=== PATIENT | female | born 1955 | race African-American/Black ===

== ENCOUNTER → 2018-09-06 | Day surgery (SDC) | payer MEDICARE, OTHER ==
[2018-09-02 12:17] LABS: ANION GAP 12.1 mmol/L (8-16); BLOOD UREA NITROGEN 11 mg/dL (7-26); BUN/CREATININE RATIO 13 (6-25); CALCIUM 9.7 mg/dL (8.4-10.2); CARBON DIOXIDE 26 mmol/L (22-29); CHLORIDE 104 mmol/L (98-107); CREATININE, SERUM 0.83 mg/dL (0.57-1.11); EST GLOMERULAR FILTRATION RATE > 60 ML/MIN (60-); GLUCOSE 142 mg/dL (74-118); POTASSIUM 4.1 mmol/L (3.5-5.1); SODIUM 138 mmol/L (136-145)
[~2018-09-06] MED LIST: BUPIVACAINE HCL 0.5% INJ 30 ML VIAL INJ ONE; FENTANYL CITRATE/PF 100MCG/2 ML INJ ONE; GABAPENTIN400 MG PO; HYDROCODONE/APAP 10MG-325MG TAB ONE; IBUPROFEN200 MG PO; IOPAMIDOL 200 MG/ML 20 ML VIAL IT ONE; LIDOCAINE HCL 1% LOCAL INJ 20 ML VIAL ONE; LISINOPRIL-HCT1 EAC1 PO; MIDAZOLAM HCL 2 MG/2 ML VIAL ONE; NORCO 10-325 T1 EACH PO; PROPOFOL IV EMULSION 10 MG/ML 20 ML VIAL ONE; SOMA350 MG PO; TRIAMCINOLONE ACET 40 MG/ML VIAL ONE; XANAX1 MG PO
--- OUTSIDE RECORDS SUMMARY | 2018-09-06 05:14 | XMS REPORT | Summary of Care ---
Author Organization Unknown Address Unknown Phone Unavailable Encounter DORI Levy(TATI) [id number] Date(s): 07/05/13 - 07/05/13 [facility] [address] [place] [address] Discharge Diagnosis: Right knee arthritis - severe Discharge Disposition: Home Physician Attending: Deisi Flores Reason for Visit LOWER BACK PAIN/KNEE PAIN Vital Signs Most recent to 1 2 oldest [Reference Range]: Height 167.64 cm (07/05/13 2:50 PM) Temperature Oral 97.8 DegF 97.7 DegF [96.4-99.1 DegF] (07/05/13 5:39 PM) (07/05/13 2:50 PM) Systolic Blood 151 mmHg 159 mmHg Pressure [90-140 *HI* *HI* mmHg] (07/05/13 5:39 PM) (07/05/13 2:50 PM) Diastolic Blood 87 mmHg 100 mmHg Pressure [60-90 (07/05/13 5:39 PM) *HI* mmHg] (07/05/13 2:50 PM) Respiratory Rate 18 BRMIN 18 BRMIN [14-20 BRMIN] (07/05/13 5:39 PM) (07/05/13 2:50 PM) Peripheral Pulse 62 bpm 71 bpm Rate [60-100 bpm] (07/05/13 5:39 PM) (07/05/13 2:50 PM) Weight 81.364 kg (07/05/13 2:50 PM) Body Mass Index 28.95 m2 (07/05/13 2:50 PM) Problem List Condition Effective Dates Status Health Status Informant None(Confirmed) Resolved Allergies, Adverse Reactions, Alerts Substance Reaction Severity Status NKDA Active Medications hydrochlorothiazide 25 mg oral tablet 25 mg=1 tab, PO, Daily, # 30 tab, 0 Refill(s) Start Date: 07/05/13 Status: Ordered Browder 5/325 oral tablet 2 tab, Route: PO, Drug Form: TAB, Dosing Weight 81.364, kg, ONCE, STAT, Start da te: 07/05/13 15:49:00, Stop date: 07/05/13 15:49:00 Notes: (Same as: Browder 325/5) Do not exceed 4gm/day of acetaminophen. Start Date: 07/05/13 Stop Date: 07/05/13 Status: Completed Browder 5/325 oral tablet 2 tab, PO, Q4H, for pain, # 30 tab, 0 Refill(s) Start Date: 07/05/13 Status: Ordered Medications Administered During Your Visit No data available for this section Immunizations No data available for this section Procedures Procedure Type Body Site Date of Procedure Related Diagnosis Replacement of left knee joint Social History Social History Type Response Smoking Status Never smoker, Previous treatment: None, Ready to change: No, Concerns about tobacco use in household: No, Exposure to Tobacco Smoke None, Cigarette Smoking Last 365 Days No, Reg Smoking Cessation Counseling No
--- OUTSIDE RECORDS SUMMARY | 2018-09-06 05:14 | XMS REPORT | Continuity of Care Document ---
Author Author Chelsy sorto Organization Interface Address Unknown Phone Unavailable Problems Problem Status Onset Date Classification Date Reported Comments Source KNEE OSTEOARTHRITIS Active 03/31/[address] [facility] Discharge Diagnosis: Right knee arthritis - severe 07/05/2013 07/07/2013 [facility] LOWER BACK PAIN/KNEE PAIN Active 07/05/2013 [facility] Hypertension Active Problem 04/12/2016 [facility] Arthritis Active Problem 04/12/2016 [facility] None Resolved Problem 04/12/2016 [facility] Cough Active Problem 04/12/2016 [facility] Medications Medication Details Route Status Patient Instructions Ordering Provider Order Date Source Acetaminophen 325 MG / Hydrocodone Bitartrate 10 MG Oral Tablet [[place] 10/325] 1-2 tab, PO, Q4-6H, PRN Pain, X 5 day, # 60 tab, 0 Refill(s), given to patient Active 04/09/2016 [facility] Acetaminophen 1,000 mg, Route: IVPB, ONCE, Dosing Weight 77.727, kg, Start date: 04/09/16 14:08:00 REPLANTER, Stop date: 04/09/16 14:08:00 REPLANTER Inactive 04/09/2016 [facility] Ondansetron 4 mg, 2 mL, Route: IVP, Drug form: INJ, ONCE, Dosing Weight 77.727, kg, PRN Nausea & Vomiting, Start date: 04/09/16 13:52:00 CSTNotes: (Same as: Julianne) MEDICATION WASTE Product Size: 4 mg Product Wasted: ___ mg Inactive 04/09/2016 [facility] Hydromorphone 0.5 mg, 0.25 mL, Route: IVP, Drug form: INJ, Q5Min, Dosing Weight 77.727, kg, PRN Pain Score 7-10, Start date: 04/09/16 13:52:00 REPLANTER, Duration: 4 doses or times, Stop date: 04/09/16 18:00:00 CSTNotes: Same as Dilaudid Inactive 04/09/2016 [facility] Naloxone 0.4 mg, 1 mL, Route: IVP, Drug form: INJ, Q2MIN, Dosing Weight 77.727, kg, PRN Narcotic Reversal, Start date: 04/09/16 13:52:00 REPLANTER, Duration: 8 doses or times, Stop date: Limited # of timesNotes: Same as Narcan Inactive 04/09/2016 [facility] Flumazenil 0.2 mg, 2 mL, Route: IVP, Drug form: INJ, PRN, Dosing Weight 77.727, kg, PRN Benzodiazepine Reversal, Initial dose, Start date: 04/09/16 13:52:00 REPLANTER, Stop date: 04/09/16 18:00:00 CSTNotes: (Same as: Romazicon) Inactive 04/09/2016 [facility] Acetaminophen 1,000 mg, 2 tab, Route: PO, Drug form: TAB, ONCE, Dosing Weight 77.727, kg, PRN Pain Score 1-3, Start date: 04/09/16 13:52:00 REPLANTER, Duration: 1 doses or times, Stop date: Limited # of timesNotes: Max acetaminophen 4000 mg/day (4 gm/day). (Same as: Tylenol Extra Strength) Inactive 04/09/2016 [facility] Ketorolac 30 mg, 1 mL, Route: IVP, Drug form: INJ, ONCE, Dosing Weight 77.727, kg, Start date: 04/09/16 13:52:00 REPLANTER, Duration: 1 doses or times, Stop date: 04/09/16 13:52:00 CSTNotes: (Same as:Toradol) IV bolus must be given >15 seconds. Give IM administration slowly and deeply into the muscle. Not for use > 4 days MEDICATION WASTE Product Size: 30 mg Product Wasted: ___ mg Inactive 04/09/2016 [facility] Labetalol 10 mg, 2 mL, Route: IVP, Drug form: INJ, Q5Min, Dosing Weight 77.727, kg, PRN Elevated BP, Start date: 04/09/16 13:52:00 REPLANTER, Duration: 5 doses or times, Stop date: 04/09/16 18:00:00 REPLANTER Inactive 04/09/2016 [facility] Hydralazine 10 mg, 0.5 mL, Route: IVP, Drug form: INJ, Q20Min, Dosing Weight 77.727, kg, PRN Elevated BP, Start date: 04/09/16 13:52:00 REPLANTER, Duration: 2 doses or times, Stop date: 04/09/16 18:00:00 CSTNotes: (Same as: Apresoline) Push over 5 minutes Inactive 04/09/2016 [facility] Tramadol 50 mg, 1 tab, Route: PO, Drug form: TAB, Q6H, Dosing Weight 77.727, kg, PRN Pain Score 1-3, Start date: 04/09/16 13:37:00 REPLANTER, Duration: 30 day, Stop date: 05/09/16 13:36:00 CSTNotes: Not to exceed 4 00mg/day. (Same As: Ultram) No Longer Active 04/09/2016 [facility] Acetaminophen 325 MG / Hydrocodone Bitartrate 10 MG Oral Tablet 1 tab, Route: PO, Drug Form: TAB, Dosing Weight 77.727, kg, Q4H, PRN Pain Score 4-6, Start date: 04/09/16 13:37:00 REPLANTER, Duration: 30 day, Stop date: 05/09/16 13:36:00 CSTNotes: Do not exceed 4gm/day of acetaminophen. (Same as: [place] 325/10) No Longer Active 04/09/2016 [facility] Morphine 2 mg, 0.2 mL, Route: IVP, Drug form: INJ, Q3H, Dosing Weight 77.727, kg, PRN Pain Score 1-3, Start date: 04/09/16 13:37:00 REPLANTER, Duration: 30 day, Stop date: 05/09/16 13:36:00 CSTNotes: (Same as:MORPhine Sulfate) No Longer Active 04/09/2016 [facility] Hydromorphone 0.3 mg, 0.15 mL, Route: IVP, Drug form: INJ, Q3H, Dosing Weight 77.727, kg, PRN Pain Score 4-6, Start date: 04/09/16 13:37:00 REPLANTER, Duration: 30 day, Stop date: 05/09/16 13:36:00 CSTNotes: Same as Dilaudid No Longer Active 04/09/2016 [facility] Lactated Ringers 1,000 mL 1,000 mL, Rate: 40 ml/hr, Infuse over: 25 hr, Route: IV, Dosing Weight 77.727 kg, Total Volume: 1,000, Start date: 04/09/16 12:17:00 REPLANTER, Duration: 30 day, Stop date: 05/09/16 12:16:00 REPLANTER No Longer Active 04/09/2016 [facility] Ancef 2 gm, 100 mL, Route: IVPB, Drug form: INJ, PRE OP, Start date: 04/09/16 12:00:00 REPLANTER, Duration: 30 day, Stop date: 05/09/16 11:59:00 CSTNotes: Same as Ancef Inactive 04/09/2016 [facility] Hydrochlorothiazide 12.5 MG / Lisinopril 20 MG Oral Tablet 1 tab, PO, Daily, # 30 tab, 0 Refill(s) Active 04/06/2016 [facility] ibuprofen 800 mg oral tablet 800 mg=1 tab, PO, Q8H, PRN Pain, Take with food, # 30 tab, 0 Refill(s) Active 04/06/2016 [facility] Hydrochlorothiazide 25 MG Oral Tablet 25 mg=1 tab, PO, Daily, # 30 tab, 0 Refill(s) Active 07/05/2013 [facility] Acetaminophen 325 MG / Hydrocodone Bitartrate 5 MG Oral Tablet [[place] 5/325] 2 tab, PO, Q4H, for pain, # 30 tab, 0 Refill(s) Active 07/05/2013 [facility] Acetaminophen 325 MG / Hydrocodone Bitartrate 5 MG Oral Tablet [[place] 5/325] 2 tab, Route: PO, Drug Form: TAB, Dosing Weight 81.364, kg, ONCE, STAT, Start date: 07/05/13 15:49:00, Stop date: 07/05/13 15:49:00Notes: (Same as: [place] 325/5) Do not exceed 4gm/day of acetaminophen. Inactive 07/05/2013 [facility] Allergies, Adverse Reactions, Alerts Substance Category Reaction Severity Reaction type Status Date Reported Comments Source Immunizations Immunization Date Given Site Status Last Updated Comments Source Results Order Name Results Value Reference Range Date Interpretation Comments Source URINE AND STOOL UA WBC 3-5 /HPF None Seen /HPF 04/07/2016 [facility] URINE AND STOOL UA Bacteria Occasional /HPF None Seen /HPF 04/07/2016 [facility] URINE AND STOOL UA RBC 0-2 /HPF 0 - 2 04/07/2016 [facility] URINE AND STOOL UA Glucose Negative (04/07/16 10:42 AM) Negative 04/07/2016 [facility] URINE AND STOOL UA Ketones Negative *NA* (04/07/16 10:42 AM) Negative 04/07/2016 [facility] URINE AND STOOL UA Protein Negative (04/07/16 10:42 AM) Negative 04/07/2016 [facility] URINE AND STOOL UA Bili Negative *NA* (04/07/16 10:42 AM) Negative 04/07/2016 [facility] URINE AND STOOL UA Urobilinogen 0.2 EU/dL 0.1 - 1.0 04/07/2016 [facility] URINE AND STOOL UA Blood Negative (04/07/16 10:42 AM) Negative 04/07/2016 [facility] URINE AND STOOL UA Sq Epi Few /LPF Few /LPF 04/07/2016 [facility] URINE AND STOOL UA Leuk Est Small *ABN* (04/07/16 10:42 AM) Negative 04/07/2016 [facility] URINE AND STOOL UA Nitrite Negative (04/07/16 10:42 AM) Negative 04/07/2016 [facility] URINE AND STOOL UA Spec Grav 1.025 <=1.030 04/07/2016 [facility] URINE AND STOOL UA Color Yellow *NA* (04/07/16 10:42 AM) Yellow 04/07/2016 [facility] URINE AND STOOL UA Turbidity Clear (04/07/16 10:42 AM) Clear 04/07/2016 [facility] URINE AND STOOL UA pH 6.0 5.0 - 8.0 04/07/2016 [facility] CHEM PANEL eGFR 74 mL/min/1.73m2 04/07/2016 Result Comment: The eGFR is calculated using the CKD-EPI formula. In most young, healthy individuals the eGFR will be >90 mL/min/1.73m2. The eGFR declines with age. An eGFR of 60-89 may be normal in some populations, particularly the elderly, for whom the CKD-EPI formula has not been extensively validated. Use of the eGFR is not recommended in the following populations: Individuals with unstable creatinine concentrations, including patients and those with serious co-morbid conditions. Patients with extremes in muscle mass or diet. The data above are obtained from the National Kidney Disease Education Program (NKDEP) which additionally recommends that when the eGFR is used in patients with extremes of body mass index for purposes of drug dosing, the eGFR should be multiplied by the estimated BMI. [facility] CHEM PANEL ALANINE AMINOTRANSFERASE 34 unit/L 0 - 65 04/07/2016 [facility] CHEM PANEL ASPARTATE TRANSAMINASE 22 unit/L 0 - 37 04/07/2016 [facility] CHEM PANEL Total Protein 7.5 g/dL 6.4 - 8.4 04/07/2016 [facility] CHEM PANEL CO2 30 meq/L 24 - 32 04/07/2016 [facility] CHEM PANEL Albumin Lvl 3.3 g/dL 3.5 - 5.0 04/07/2016 [facility] CHEM PANEL Potassium Lvl 4.4 meq/L 3.5 - 5.1 04/07/2016 [facility] CHEM PANEL Calcium Lvl 9.9 mg/dL 8.5 - 10.5 04/07/2016 [facility] CHEM PANEL Chloride Lvl 104 meq/L 95 - 109 04/07/2016 [facility] CHEM PANEL Bili Total 0.3 mg/dL 0.2 - 1.3 04/07/2016 [facility] CHEM PANEL Alk Phos 69 unit/L 39 - 136 04/07/2016 [facility] CHEM PANEL BUN 9 mg/dL 7 - 22 04/07/2016 [facility] CHEM PANEL Sodium Lvl 139 meq/L 135 - 145 04/07/2016 [facility] CHEM PANEL Glucose Lvl 82 mg/dL 70 - 99 04/07/2016 [facility] CHEM PANEL Creatinine Lvl 0.97 mg/dL 0.50 - 1.40 04/07/2016 [facility] CHEM PANEL A/G Ratio 0.8 0.7 - 1.6 04/07/2016 [facility] CHEM PANEL Globulin 4.2 g/dL 2.7 - 4.2 04/07/2016 [facility] CHEM PANEL B/C Ratio 9 6 - 25 04/07/2016 [facility] CHEM PANEL AGAP 9.4 meq/L 10.0 - 20.0 04/07/2016 [facility] HEMATOLOGY Basophils 0.8 % 0.0 - 1.0 04/07/2016 [facility] HEMATOLOGY Eosinophils 3.6 % 0.0 - 4.0 04/07/2016 [facility] HEMATOLOGY Monocytes 11.3 % 2.0 - 12.0 04/07/2016 [facility] HEMATOLOGY Segs 39.1 % 45.0 - 75.0 04/07/2016 [facility] HEMATOLOGY Lymphocytes 45.2 % 20.0 - 40.0 04/07/2016 [facility] HEMATOLOGY Eosinophils # 0.2 K/CMM 0.0 - 0.5 04/07/2016 [facility] HEMATOLOGY Monocytes # 0.7 K/CMM 0.0 - 0.8 04/07/2016 [facility] HEMATOLOGY Segs-Bands # 2.3 K/CMM 1.5 - 8.1 04/07/2016 [facility] HEMATOLOGY Lymphocytes # 2.7 K/CMM 1.0 - 5.5 04/07/2016 [facility] HEMATOLOGY Hgb 13.0 g/dL 12.0 - 16.0 04/07/2016 [facility] HEMATOLOGY Hct 39.8 % 36.0 - 48.0 04/07/2016 [facility] HEMATOLOGY MCH 32.6 pg 27.0 - 31.0 04/07/2016 [facility] HEMATOLOGY MCHC 32.6 g/dL 32.0 - 36.0 04/07/2016 [facility] HEMATOLOGY MCV 100.0 fL 80.0 - 98.0 04/07/2016 [facility] HEMATOLOGY RDW 13.6 % 11.5 - 14.5 04/07/2016 [facility] HEMATOLOGY WBC 6.0 K/CMM 3.7 - 10.4 04/07/2016 [facility] HEMATOLOGY RBC 3.98 M/CMM 4.20 - 5.40 04/07/2016 [facility] HEMATOLOGY Platelet 261 K/CMM 133 - 450 04/07/2016 [facility] HEMATOLOGY MPV 8.3 fL 7.4 - 10.4 04/07/2016 [facility] Vital Signs Vital Sign Value Date Comments Source Systolic (mm Hg) 132 04/09/2016 [facility] Diastolic (mm Hg) 75 04/09/2016 [facility] Respitory Rate 14 04/09/2016 [facility] Heart Rate 67 04/09/2016 [facility] Systolic (mm Hg) 144 04/09/2016 [facility] Diastolic (mm Hg) 79 04/09/2016 [facility] Respitory Rate 16 04/09/2016 [facility] Heart Rate 65 04/09/2016 [facility] Respitory Rate 16 04/09/2016 [facility] Systolic (mm Hg) 138 04/09/2016 [facility] Diastolic (mm Hg) 79 04/09/2016 [facility] Heart Rate 78 04/09/2016 [facility] Temperature Oral (F) 98.4 F 04/09/2016 [facility] Weight 77.727 04/09/2016 [facility] BMI Calculated 27.66 04/09/2016 [facility] Temperature Oral (F) 97.4 F 04/07/2016 [facility] Height 167.64 cm 04/06/2016 [facility] Heart Rate 62 07/05/2013 [facility] Resp[facility] Rate 18 07/05/2013 [facility] Systolic (mm Hg) 151 07/05/2013 [facility] Diastolic (mm Hg) 87 07/05/2013 [facility] Temperature Oral (F) 97.8 F 07/05/2013 [facility] Height 167.64 cm 07/05/2013 [facility] BMI Calculated 28.95 07/05/2013 [facility] Weight 81.364 07/05/2013 [facility] Respitory Rate 18 07/05/2013 [facility] Temperature Oral (F) 97.7 F 07/05/2013 [facility] Systolic (mm Hg) 159 07/05/2013 [facility] Heart Rate 71 07/05/2013 [facility] Diastolic (mm Hg) 100 07/05/2013 [facility] Encounters Location Location Details Encounter Type Encounter Number Reason For Visit Attending Provider ADM Date DC Date Status Source [facility] [id number] Deisi Flores 07/05/2013 07/05/2013 [facility] [id number] Jordan Garay 04/09/2016 04/10/2016 [facility] Procedures Procedure Code Date Perfomer Comments Source Replacement of left knee joint [id number] 03/29/2005 [facility] Tubal ligation [id number] 03/29/1984 [facility] Replacement of left knee joint [id number] [facility]
--- OUTSIDE RECORDS SUMMARY | 2018-09-06 05:14 | XMS REPORT ---
Author Organization Unknown Address [address] [place] [address] Phone [phone] Care Team Providers Care Police Booking Officer Name Role Phone VELMA "DON" JASIEL MAYEN 3 [phone] FRANCISCO MIRANDA 212 [phone] GABBIE MAYAJOSHUA 107 [phone] Allergies Code Code System Name Reaction Severity Status Onset NKDA Medications Name Status Start Date Stop Date acetaminophen 300 mg-codeine 30 mg tablet Take 1 tablet every 8 hours by oral route as needed. Completed 09/02/2016 acetaminophen 300 mg-codeine 60 mg tablet TAKE 1 TABLET BY MOUTH EVERY 8 HOURS Active Not available alprazolam 2 mg tablet TAKE 1 TABLET BY MOUTH TWICE DAILY NEEDED Active Not available alprazolam 2 mg tabs Completed 07/01/2017 amitriptyline hcl 25 mg tabs Completed 07/01/2017 amoxicillin 500 mg caps Completed 07/01/2017 apap/codeine tab 300-30mg Completed 07/01/2017 apap/codeine tab 300-60mg Completed 07/01/2017 aspirin 81 mg tablet,delayed release Take 1 tablet every day by oral route for 90 days. Active Not available atorvastatin 40 mg tablet Take 1 tablet every day by oral route for 90 days. Completed 07/01/2017 atorvastatin calcium 40 mg tabs Completed 07/01/2017 azithromycin 250 mg tablet TAKE 2 TABLETS (500 MG) BY ORAL ROUTE ONCE DAILY FOR 1 DAY THEN 1 TABLET (250 MG) BY ORAL ROUTE ONCE DAILY FOR 4 DAYS Completed 11/03/2016 azithromycin 250 mg tabs Completed 12/02/2016 carisoprodol 350 mg tabs Completed 05/03/2017 Depo-Medrol 80 mg/mL suspension for injection Take 1 mL by injection route. Completed 05/03/2017 hydrocodone 10 mg-acetaminophen 325 mg tablet Take 1 tablet every 6 hours by oral route as needed. Completed 09/15/2016 lisinop/hctz tab 10-12.5 Completed 07/01/2017 lisinop/hctz tab 20-25mg Completed 07/01/2017 lisinopril 10 mg-hydrochlorothiazide 12.5 mg tablet Take 1 tablet every day by oral route for 90 days. Completed 07/01/2017 lisinopril 20 mg tablet Completed 11/03/2016 lisinopril 20 mg-hydrochlorothiazide 25 mg tablet Take 1 tablet every day by oral route for 90 days. Active Not available Medrol (Marky) 4 mg tablets in a dose pack Take as directed on the pack Completed 03/01/2017 metformin 500 mg tablet Take 1 tablet twice a day by oral route for 90 days. Completed 05/31/2017 metformin hcl 500 mg tabs Completed 07/01/2017 omega-3 fatty acids 1,000 mg capsule Take 2 capsules twice a day by oral route with meals for 90 days. Completed 11/03/2016 [id number] cap 1gm Active Not available rosuvastatin 20 mg tablet Take 1 tablet every day by oral route for 90 days. Active Not available rosuvastatin calcium 20 mg tabs Completed 07/01/2017 Soma 350 mg tablet Take 1 tablet twice a day by oral route as needed for 30 days. Active Not available tramadol hcl 50 mg tabs Completed 05/31/2017 Problems Name Status Onset Date Source Anxiety Unknown 09/02/2016 Opioid Dependence Active 09/02/2016 Tobacco User Active 09/02/2016 Essential Hypertension Active 09/02/2016 Degeneration of Lumbar Intervertebral Disc Active 09/02/2016 Chronic Low Back Pain Active 09/02/2016 Bilateral Knee Pain Active 09/02/2016 Subclinical Hyperthyroidism Active 09/15/2016 Mixed Hyperlipidemia Active 09/15/2016 Prediabetes Active 09/15/2016 History of Total Knee Arthroplasty Active 09/15/2016 Pain in Right Knee Unknown 09/15/2016 Procedures Date Name Performed by Knee Surgery Notes: Left knee replacement 2000Right knee surgery 03/2016 Information not available 09/02/2016 MAMMO, Screening, Bilateral [facility] [address] [place] [address] (Work [address]) 09/15/2016 Bone Density [facility] [address] [place] [address] (Work [address]) 01/01/2017 MAMMO, Screening, Bilateral [facility] [address] [place] [address] (Work [address]) 02/01/2017 MAMMO, Screening, Bilateral [facility]) [address] [place] [address] (Work Place) 02/01/2017 MRI, Lumbar Spine, W/o Contrast [facility]) [id number] [place] [address] (Work Place) 07/01/2017 MAMMO, Screening, Bilateral [facility]) [id number] [place] [address] (Work Place) 07/01/2017 Bone Density [facility]) [id number] [place] [address] (Work Place) Lab Results Date Name Specimen Result Interpretation Description Value Range Status Address 05/31/2017 CMP, Serum or Plasma Glucose, Serum 97 mg/dL 65-99 mg/dL Final [facility] Laboratory: [address] Bun 9 mg/dL 6-24 mg/dL Final [facility] Laboratory: [address] [facility] Buna Creatinine, Serum 0.76 mg/dL 0.57-1.00 mg/dL Final [facility]: [address] [place] eGFR If Nonafricn AM 86 mL/min/1.73 >59 mL/min/1.[address] [facility]: [address] Hu[address]h eGFR If Africn AM 99 mL/min/1.73 >59 mL/min/1.[address] [facility]: [address] [place] BUN/creatinine Ratio 12 12-[address] [facility]: [address] Sodium, Serum 143 mmol/L 134-144 mmol/L Final [facility]: [address] [place] High Potassium, Serum 5.4 mmol/L 3.5-5.2 mmol/L Final [facility]: [address] [place] Chloride, Serum 105 mmol/L 96-106 mmol/L Final [facility]: [address] [place] Carbon Dioxide, Total 25 mmol/L 18-29 mmol/L Final [facility]: [address] High Calcium, Serum 10.3 mg/dL 8.7-10.2 mg/dL Final [facility]: [address] Protein, Total, Serum 6.7 g/dL 6.0-8.5 g/dL Final [facility]: [address] Albumin, Serum 4.3 g/dL 3.5-5.5 g/dL Final [facility]: [address] Globulin, Total 2.4 g/dL 1.5-4.5 g/dL Final [facility]: [address] A/g Ratio 1.8 1.2-2.[address] [facility]: [address] Bilirubin, Total <0.2 mg/dL 0.0-1.2 mg/dL Final [facility]: [address] Alkaline Phosphatase, S 63 IU/L 39-117 IU/L Final [facility]: [address] Ast (Sgot) 25 IU/L 0-40 IU/L Final [facility]: [address] Alt (Sgpt) 18 IU/L 0-32 IU/L Final [facility]: [address] 05/31/2017 Lipid Panel, Serum High Cholesterol, Total 244 mg/dL 100- 199 mg/dL Final [facility]: [address] Triglycerides 67 mg/dL 0-149 mg/dL Final [facility]: [address] HDL Cholesterol 115 mg/dL >39 mg/dL Final [facility]: [address] VLDL Cholesterol Sohan 13 mg/dL 5-40 mg/dL Final [facility]: [address] High LDL Cholesterol Calc 116 mg/dL 0-99 mg/dL Final [facility]: [address] 05/31/2017 TSH, Serum or Plasma Tsh 0.692 uIU/mL 0.450-4.500 uIU/mL Final [facility]: [address] [place] [address] 05/31/2017 No Test Indicated . comment Final [facility]: [address] [place] [address] Dear Doctor, comment Final [facility]: [address] [place] [address] 05/31/2017 T4, Total, Serum Thyroxine (T4) 10.9 ug/dL 4.5-12.0 ug/dL Final [facility]: [address] [place] [address] 05/31/2017 Thyroglobulin Ab, Serum Thyroglobulin Antibody <1.0 IU/mL 0.0-0.9 IU/mL Final [facility]: [address] [place] [address] 05/31/2017 Thyroid Peroxidase (Tpo) Ab, Serum Thyroid Peroxidase (Tpo) Ab 15 IU/mL 0-34 IU/mL Final [facility]: [address] [place] [address] 02/01/2017 Pap, IG + HPV mRNA E6/E7 Diagnosis: comment Final [facility]: [address] [place] [address] Specimen Adequacy: comment Final [facility]: [address] [place] [address] Performed by: comment Final [facility]: [address] [place] [address] . . Final [facility]: [address] [place] [address] Note: comment Final [facility]: [address] [place] [address] HPV, High-risk negative negative Final [facility]: [address] [place] [address] 09/21/2016 Fecal Occult Blood, Stool Fecal Globin (Medicare) by Immunochemistry not detected Final [facility]: [address] [place] [address] 09/02/2016 CBC W/ Auto Diff Wbc 8.01 x10*3/L 2.60-11.20 x10*3/L Final [facility]: [address] [place] [address] Rbc 3.98 10*12/L 3.93-5.87 10*12/L Final [facility]: [address] [place] [address] Hemoglobin 13.40 g/dL 10.70-15.70 g/dL Final [facility]: [address] [place] [address] Hematocrit 40.7 % 33.2-46.8 % Final [facility]: [address] [place] Mcv 102.3 fL 77.8-103.[address] [facility]: [address] [place] Mch 33.7 pg 24.8-35.[address] [facility]: [address] [place] Mchc 32.9 g/dL 31.5-35.9 g/dL Final [facility]: [address] [place] High RDW-SD 53.6 fL 35.8-50.[address] [facility]: [address] [place] Platelet Count 254.0 k/uL 126.7-416.1 k/uL Final [facility]: [address] [place] Mpv 9.6 fL 8.3-13.[address] [facility]: [address] [place] Neut% 45.8 % 39.5-76.9 % Final [facility]: [address] [place] Lymph% 42.9 % 12.6-45.8 % Final [facility]: [address] [place] Mon% 9.9 % 3.7-12.9 % Final [facility]: [address] [place] Eos% 1.2 % 0.7-6.4 % Final [facility]: [address] [place] Baso% 0.2 % 0.1-1.5 % Final [facility]: [address] [place] Neut# 3.7 x10*3/L 0.6-7.6 x10*3/L Final [facility]: [address] [place] High Lymph# 3.4 x10*3/L 0.7-3.3 x10*3/L Final [facility]: [address] [place] Mon# 0.8 x10*3/L 0.2-1.0 x10*3/L Final [facility]: [address] [place] Eos# 0.10 x10*3/L 0.04-0.44 x10*3/L Final [facility]: [address] [place] [address] Baso# 0.02 x10*3/L 0.01-0.08 x10*3/L Final [facility] [facility] CMP, Serum or Plasma Alt 37 U/L 0-55 U/L Final [facility]: [address] Ast 30 U/L 5-34 U/L Final [facility]: [address] Bun 11.7 mg/dL 9.8-20.1 mg/dL Final [facility]: [address] Alk Phos 60 unit/L 40-150 unit/L Final [facility]: [address] Glucose 84 mg/dL 70-99 mg/dL Final [facility]: [address] Low Albumin 3.4 g/dL 3.5-5.0 g/dL Final [facility]: [address] Creatinine 0.87 mg/dL 0.57-1.11 mg/dL Final [facility]: [address] eGFR Non- >60 mL/min/1.73m2 >60 mL/min/1.73m2 Final [facility]: [address] Total Bilirubin 0.2 mg/dL 0.2-1.2 mg/dL Final [facility]: [address] eGFR - >60 mL/min/1.73m2 >60 mL/min/1.73m2 [address] [facility]: [address] Sodium 140 mEq/L 136-145 mEq/L Final [facility]: [address] Potassium 4.5 mEq/L 3.5-5.1 mEq/L Final [facility]: [address] Chloride 106 mmol/L 98-107 mmol/L Final [facility]: [address] Total Protein 7.0 g/dL 6.4-8.3 g/dL Final [facility]: [address] Calcium 9.9 mg/dL 8.4-10.2 mg/dL Final [facility]: [address] Co2 28.1 mmol/L 22.0-29.0 mmol/L Final [facility]: [address] Anion Gap [address] [facility]: [address] 09/02/2016 Lipid Panel, Serum High Hdl 100 mg/dL 40-60 mg/dL Final [facility]: [address] Triglyceride 136 mg/dL 0-149 mg/dL Final [facility]: [address] VLDL Calc. 27 mg/dL Final [facility]: [address] cholesterol/HDL Ratio 2 mg/dL Final [facility]: [address] [place] [address] non-HDL Cholesterol Calc. 149 mg/dL 0-160 mg/dL Final [facility]: [address] High Cholesterol 249 mg/dL 0-199 mg/dL Final [facility]: [address] LDL Calc. 122 mg/dL 0-130 mg/dL Final [facility]: [address] 09/02/2016 T4, Total, Serum T4 Total 8.39 ug/dL 4.87-11.72 ug/dL Final [facility]: [address] [place] [address] 09/02/2016 TSH, Serum or Plasma Low Tsh 0.340 uIU/mL 0.350-4.940 uIU/mL Final [facility]: [address] 09/02/2016 HbA1C (Hemoglobin a1C), Blood High A1C W/eag 6.0 % 1.0-5.7 % Final [facility]: [address] Average Blood Glucose 126 mg/dL Final [facility]: [address] [place] [address] 09/02/2016 Drug Screen, Urine Please Note: Final [facility]: [address] [place] [address] Normal Amphetamines (1000 NG/mL Screen) negative Final [facility]: [address], [place] Normal Barbiturates negative Final [facility]: [address], [place] Normal Benzodiazepines negative Final [facility]: [address], [place] ABNORMAL Cocaine Metabolites positive Final [facility]: [address], [place] ABNORMAL Marijuana Metabolites (50 NG/mL Screen) positive Final [facility]: [address], [place] Normal Methadone negative Final [facility]: [address], [place] Normal Methaqualone negative Final [facility]: [address], [place] ABNORMAL Opiates positive Final [facility]: [address], [place] Normal Morphine negative confirmed Final [facility]: [address], [place] Normal Codeine negative confirmed Final [facility]: [address] [place] [address], [place] Normal Hydromorphone tnp Final [facility]: [address] [place] [address], [place] ABNORMAL Hydrocodone positive Final [facility]: [address], [place] Normal Phencyclidine negative Final [facility]: [address] [place] [address], [place] Normal Propoxyphene negative Final [facility]: [address] [place] [address], [place] Normal Alcohol, Ethyl (U) negative Final [facility]: [address] Ben[address] [place] [address], [place] Comment Final [facility]: [address] [place] [address], [place] Pulse Oximetry Pulse Ox 98% [facility]: [address] [place] [address] Past Encounters 07/01/2017 Body Mass Index 25-29 - Overweight; Chronic Low Back Pain; Mixed Hyperlipidemia; Essential Hypertension; Opioid Dependence; Generalized Anxiety Disorder; Screening for Malignant Neoplasm of Breast; Screening for Osteoporosis; Pain in Left Foot Velma Weathers MD: [address] [place] [phone], Ph. 05/31/2017 Essential Hypertension; Mixed Hyperlipidemia; Chronic Low Back Pain; Opioid Dependence; Generalized Anxiety Disorder; Tobacco User; Subclinical Hyperthyroidism; History of Total Knee Arthroplasty; Benzodiazepine Dependence Velma Weathers MD: [address] [place] [phone], Ph. 05/03/2017 Generalized Anxiety Disorder; Chronic Low Back Pain GASTON LeeP: [address] [address], Ph. 04/09/2017 Opioid Dependence; Chronic Low Back Pain GASTON LeeP: [address] [address], Ph. 03/01/2017 Chronic Low Back Pain; Sciatica GASTON LeeP: [address] [facility], [address] [address], Ph. 02/01/2017 Gynecologic Examination; Screening Mammography; Screening for Malignant Neoplasm of Colon; Anxiety; Degeneration of Lumbar Intervertebral Disc; Tobacco User GASTON LeeP: [address] [address], Ph. 01/01/2017 Anxiety; Degeneration of Lumbar Intervertebral Disc; Immunization; Screening Mammography DASH Lee: [address] [facility], [address] [address], Ph. 12/02/2016 Anxiety; Degeneration of Lumbar Intervertebral Disc; Tobacco User GASTON LeeP: [address] [address], Ph. 11/03/2016 Anxiety; Degeneration of Lumbar Intervertebral Disc; Chronic Low Back Pain; Tobacco User GASTON LeeP: [address] [facility], [address] [address], Ph. 10/06/2016 Anxiety; Degeneration of Lumbar Intervertebral Disc; Acute Upper Respiratory Infection PANCHO Garcia: [id number] [facility], [address] [address], Ph. 09/15/2016 Essential Hypertension; Prediabetes; Degeneration of Lumbar Intervertebral Disc; Anxiety; Pain in Right Knee; History of Total Knee Arthroplasty; Chronic Low Back Pain; Tobacco User; Mixed Hyperlipidemia; Subclinical Hyperthyroidism; Screening for Osteoporosis; Screening for Malignant Neoplasm of Colon Velma R Jasiel, MD: [address] [facility], [address], [place] [address], Ph. 09/02/2016 Adult Health Examination; Essential Hypertension; Tobacco User; Anxiety; Chronic Low Back Pain; Bilateral Knee Pain; Degeneration of Lumbar Intervertebral Disc; Opioid Dependence; Chronic Cough; Screening Mammography; Body Mass Index 25-29 - Overweight; Family History of Diabetes Mellitus Type 2; Advance Directive Discussed with Patient GASTON LeeP: [id number] [facility], [address], [place] [address], Ph. Social History Smoking Status Light Tobacco Smoker (04/01 PPD) Notes: Quit 1994 2 CIGS A MONTH Vaccine List Vaccine Type Influenza, injectable, MDCK, quadrivalent 01/01/20170.5 mL Notes: decline's all vaccine's -07/01/2017-dorcas Plan of Care Patient Instructions It was good to see you in the office today for your Medicare Annual Wellness Visit. You have been provided some information on healthy nutrition, including a diet rich in fruits and vegetables, minimizing simple carbohydrates, salt, and saturated fats. I want to encourage regular cardiovascular exercise such as walking at least 30 minutes daily, 5 times per week. Please remember to schedule any preventive health measures that we talked about today. You have also been provided education on fall prevention and community- based lifestyle interventions to help reduce health risks and promote healthy living in your [employer] folder. Screening Recommendations 1. Vaccines Pneumococcal: discussed today and information sent with patient in their [employer] health folder Influenza: discussed today and information sent with patient in their [employer] health folder Shingles: discussed today and information sent with patient in their [employer] health folder Tetanus: discussed today and information sent with patient in their [employer] health folder 2. Mammography Screening: discussed today and information sent with patient in their [employer] health folder 3. Colorectal cancer Screening Colonoscopy: discussed today and information sent with patient in their [employer] health folder Fecal Occult Blood: discussed today and information sent with patient in their [employer] health folder 4. Bone Mass Measurement: discussed today 5. Pap test / Pelvic Exam Screening: discussed today 6. Eye Exam Screening: discussed today 7. Cholesterol Screening: discussed today 8. Diabetes Screening: discussed today Reminders Provider Appointments None recorded. Lab None recorded. Referral None recorded. Procedures None recorded. Surgeries None recorded. Imaging None recorded. Vitals 07/01/2017 10:30AM Est Patient Height Weight BMI Blood Pressure 5 ft 6 in 176 lbs 28.4 kg/m2 124/82 mm[Hg] 05/31/2017 10:30AM Est Patient Height Weight BMI Blood Pressure 5 ft 6 in 175.2 lbs 28.3 kg/m2 155/101 mm[Hg] 05/03/2017 10:00AM Est Patient Height Weight BMI Blood Pressure 5 ft 6 in 174.8 lbs 28.2 kg/m2 133/88 mm[Hg] 04/09/2017 10:00AM Est Patient Height Weight BMI Blood Pressure 5 ft 6 in 179.2 lbs 28.9 kg/m2 125/91 mm[Hg] 03/01/2017 11:30AM Est Patient Height Weight BMI Blood Pressure 5 ft 6 in 179.8 lbs 29 kg/m2 134/83 mm[Hg] 02/01/2017 10:30AM HOME HEALTH TRAVEL PT/EST CPX Height Weight BMI Blood Pressure 5 ft 6 in 178 lbs 28.7 kg/m2 124/86 mm[Hg] 01/01/2017 01:30PM Est Patient Height Weight BMI Blood Pressure 5 ft 6 in 180.2 lbs 29.1 kg/m2 (1) 139/97 mm[Hg] (2) 128/94 mm[Hg] 12/02/2016 11:00AM Est Patient Height Weight BMI Blood Pressure 5 ft 6 in 179.8 lbs 29 kg/m2 124/85 mm[Hg] 11/03/2016 11:30AM Est Patient Height Weight BMI Blood Pressure 5 ft 6 in 189 lbs 30.5 kg/m2 133/88 mm[Hg] 10/06/2016 12:00PM Est Patient Height Weight BMI Blood Pressure 5 ft 6 in 178 lbs 28.7 kg/m2 135/95 mm[Hg] 09/15/2016 01:30PM Est Patient Height Weight BMI Blood Pressure 5 ft 6 in 185 lbs 29.9 kg/m2 132/93 mm[Hg] 09/02/2016 11:00AM New Patient Height Weight BMI Blood Pressure 5 ft 6 in 179.6 lbs 29 kg/m2 122/88 mm[Hg]
--- OUTSIDE RECORDS SUMMARY | 2018-09-06 05:14 | XMS REPORT | Summary of Care ---
Author Author [facility] Organization [facility] Address Unknown Phone Unavailable Encounter DORI Levy(TATI) [id number] Date(s): 04/09/16 - 04/09/16 [facility] [address] [place] [address]- [phone] Discharge Disposition: Home or Self Care Attending Physician: Jordan Garay MD Referring Physician: Jordan Garay MD Vital Signs 1 2 3 Most recent to oldest [Reference Range]: 167.64 cm (04/06/16 9:37 AM) Height 98.4 DegF (04/09/16 12:03 PM) 97.4 DegF (04/07/16 11:41 AM) Temperature Oral [96.4-99.1 DegF] 132/75 mmHg (04/09/16 3:19 PM) 144/79 mmHg *HI* (04/09/16 2:48 PM) 138/79 mmHg (04/09/16 2:35 PM) Blood Pressure [90-140/60-90 mmHg] 14 BRMIN (04/09/16 3:19 PM) 16 BRMIN (04/09/16 2:48 PM) 16 BRMIN (04/09/16 2:35 PM) Respiratory Rate [14-20 BRMIN] 67 bpm (04/09/16 3:19 PM) 65 bpm (04/09/16 2:48 PM) 78 bpm (04/09/16 12:03 PM) Peripheral Pulse Rate [60-100 bpm] 77.727 kg (04/09/16 11:05 AM) Weight 27.66 m2 (04/09/16 11:05 AM) Body Mass Index Problem List Condition Effective Dates Status Health Status Informant Hypertension(Confirm Active ed) Arthritis(Confirmed) Active None(Confirmed) Resolved Cough(Confirmed) Active Allergies, Adverse Reactions, Alerts Substance Reaction Severity Status NKDA Active Medications acetaminophen 1,000 mg, Route: IVPB, ONCE, Dosing Weight 77.727, kg, Start date: 04/09/16 14:0 8:00 ASSURANCE AUDITOR, Stop date: 04/09/16 14:08:00 ASSURANCE AUDITOR Start Date: 04/09/16 Stop Date: 04/09/16 Status: Completed acetaminophen-hydrocodone 325 mg-10 mg oral tablet 1 tab, Route: PO, Drug Form: TAB, Dosing Weight 77.727, kg, Q4H, PRN Pain Score 4-6, Start date: 04/09/16 13:37:00 ASSURANCE AUDITOR, Duration: 30 day, Stop date: 05/09/16 13 :36:00 ASSURANCE AUDITOR Notes: Do not exceed 4gm/day of acetaminophen. (Same as: Dundee 325/10) Start Date: 04/09/16 Stop Date: 04/10/16 Status: Discontinued Ancef 2 gm, 100 mL, Route: IVPB, Drug form: INJ, PRE OP, Start date: 04/09/16 12:00:00 ASSURANCE AUDITOR, Duration: 30 day, Stop date: 05/09/16 11:59:00 ASSURANCE AUDITOR Notes: Same as Ancef Start Date: 04/09/16 Stop Date: 04/09/16 Status: Completed ANES acetaminophen 1,000 mg, 2 tab, Route: PO, Drug form: TAB, ONCE, Dosing Weight 77.727, kg, PRN Pain Score 1-3, Start date: 04/09/16 13:52:00 ASSURANCE AUDITOR, Duration: 1 doses or times, S top date: Limited # of times Notes: Max acetaminophen 4000 mg/day (4 gm/day). (Same as: Tylenol Extra Streng th) Start Date: 04/09/16 Stop Date: 04/09/16 Status: Discontinued ANES flumazenil 0.2 mg, 2 mL, Route: IVP, Drug form: INJ, PRN, Dosing Weight 77.727, kg, PRN Jj zodiazepine Reversal, Initial dose, Start date: 04/09/16 13:52:00 ASSURANCE AUDITOR, Stop date : 04/09/16 18:00:00 ASSURANCE AUDITOR Notes: (Same as: Romazicon) Start Date: 04/09/16 Stop Date: 04/09/16 Status: Discontinued ANES hydrALAZINE 10 mg, 0.5 mL, Route: IVP, Drug form: INJ, Q20Min, Dosing Weight 77.727, kg, PRN Elevated BP, Start date: 04/09/16 13:52:00 ASSURANCE AUDITOR, Duration: 2 doses or times, Stop date: 04/09/16 18:00:00 ASSURANCE AUDITOR Notes: (Same as: Apresoline)Push over 5 minutes Start Date: 04/09/16 Stop Date: 04/09/16 Status: Discontinued ANES HYDROmorphone 0.5 mg, 0.25 mL, Route: IVP, Drug form: INJ, Q5Min, Dosing Weight 77.727, kg, WV N Pain Score 7-10, Start date: 04/09/16 13:52:00 ASSURANCE AUDITOR, Duration: 4 doses or times , Stop date: 04/09/16 18:00:00 ASSURANCE AUDITOR Notes: Same as Dilaudid Start Date: 04/09/16 Stop Date: 04/09/16 Status: Discontinued ANES ketOROLAC 30 mg, 1 mL, Route: IVP, Drug form: INJ, ONCE, Dosing Weight 77.727, kg, Start d ate: 04/09/16 13:52:00 ASSURANCE AUDITOR, Duration: 1 doses or times, Stop date: 04/09/16 13:5 2:00 ASSURANCE AUDITOR Notes: (Same as:Toradol) IV bolus must be given >15 seconds. Give IM administration slowly and deeply into the muscle.Not for use > 4 days MEDICATION WASTE Product Size: 30 mgProduct Wasted: ___ mg Start Date: 04/09/16 Stop Date: 04/09/16 Status: Completed ANES labetalol 10 mg, 2 mL, Route: IVP, Drug form: INJ, Q5Min, Dosing Weight 77.727, kg, PRN El evated BP, Start date: 04/09/16 13:52:00 ASSURANCE AUDITOR, Duration: 5 doses or times, Stop d ate: 04/09/16 18:00:00 ASSURANCE AUDITOR Start Date: 04/09/16 Stop Date: 04/09/16 Status: Discontinued ANES naloxone 0.4 mg, 1 mL, Route: IVP, Drug form: INJ, Q2MIN, Dosing Weight 77.727, kg, PRN N arcotic Reversal, Start date: 04/09/16 13:52:00 ASSURANCE AUDITOR, Duration: 8 doses or times, Stop date: Limited # of times Notes: Same as Narcan Start Date: 04/09/16 Stop Date: 04/09/16 Status: Discontinued ANES ondansetron 4 mg, 2 mL, Route: IVP, Drug form: INJ, ONCE, Dosing Weight 77.727, kg, PRN Naus ea & Vomiting, Start date: 04/09/16 13:52:00 ASSURANCE AUDITOR Notes: (Same as: Julianne) MEDICATION WASTE Product Size: 4 mgProduct Was carley: ___ mg Start Date: 04/09/16 Stop Date: 04/09/16 Status: Discontinued hydrochlorothiazide-lisinopril 12.5 mg-20 mg oral tablet 1 tab, PO, Daily, # 30 tab, 0 Refill(s) Start Date: 04/06/16 Status: Ordered hydromorphone 0.3 mg, 0.15 mL, Route: IVP, Drug form: INJ, Q3H, Dosing Weight 77.727, kg, PRN Pain Score 4-6, Start date: 04/09/16 13:37:00 ASSURANCE AUDITOR, Duration: 30 day, Stop date: 05/09/16 13:36:00 ASSURANCE AUDITOR Notes: Same as Dilaudid Start Date: 04/09/16 Stop Date: 04/10/16 Status: Discontinued ibuprofen 800 mg oral tablet 800 mg=1 tab, PO, Q8H, PRN Pain, Take with food, # 30 tab, 0 Refill(s) Start Date: 04/06/16 Status: Ordered Lactated Ringers 1,000 mL 1,000 mL, Rate: 40 ml/hr, Infuse over: 25 hr, Route: IV, Dosing Weight 77.727 kg , Total Volume: 1,000, Start date: 04/09/16 12:17:00 ASSURANCE AUDITOR, Duration: 30 day, Stop date: 05/09/16 12:16:00 ASSURANCE AUDITOR Start Date: 04/09/16 Stop Date: 04/10/16 Status: Discontinued morphine Sulfate 2 mg, 0.2 mL, Route: IVP, Drug form: INJ, Q3H, Dosing Weight 77.727, kg, PRN Wali n Score 1-3, Start date: 04/09/16 13:37:00 ASSURANCE AUDITOR, Duration: 30 day, Stop date: 02/12 13:36:00 ASSURANCE AUDITOR Notes: (Same as:MORPhine Sulfate) Start Date: 04/09/16 Stop Date: 04/10/16 Status: Discontinued Dundee 10/325 oral tablet 1-2 tab, PO, Q4-6H, PRN Pain, X 5 day, # 60 tab, 0 Refill(s), given to patient Start Date: 04/09/16 Stop Date: 04/14/16 Status: Ordered tramadol 50 mg, 1 tab, Route: PO, Drug form: TAB, Q6H, Dosing Weight 77.727, kg, PRN Pain Score 1-3, Start date: 04/09/16 13:37:00 ASSURANCE AUDITOR, Duration: 30 day, Stop date: 04/29 04/14 13:36:00 ASSURANCE AUDITOR Notes: Not to exceed 400mg/day. (Same As: Ultram) Start Date: 04/09/16 Stop Date: 04/10/16 Status: Discontinued Results ELECTROLYTES Most recent to 1 oldest [Reference Range]: Sodium Lvl [135-145 139 mEq/L mEq/L] (04/07/16 10:32 AM) Potassium Lvl 4.4 mEq/L [3.5-5.1 mEq/L] (04/07/16 10:32 AM) Chloride Lvl [95-109 104 mEq/L mEq/L] (04/07/16 10:32 AM) CO2 [24-32 mEq/L] 30 mEq/L (04/07/16 10:32 AM) AGAP [10.0-20.0 9.4 mEq/L mEq/L] *LOW* (04/07/16 10:32 AM) CHEM PANEL Most recent to 1 oldest [Reference Range]: Creatinine Lvl 0.97 mg/dL [0.50-1.40 mg/dL] (04/07/16 10:32 AM) eGFR 74 mL/min/1.73m2 1 *NA* (04/07/16 10:32 AM) BUN [7-22 mg/dL] 9 mg/dL (04/07/16 10:32 AM) B/C Ratio [6-25] 9 (04/07/16 10:32 AM) Glucose Lvl [70-99 82 mg/dL mg/dL] (04/07/16 10:32 AM) Total Protein 7.5 g/dL [6.4-8.4 g/dL] (04/07/16 10:32 AM) Albumin Lvl [3.5-5.0 3.3 g/dL g/dL] *LOW* (04/07/16 10:32 AM) Globulin [2.7-4.2 4.2 g/dL g/dL] (04/07/16 10:32 AM) A/G Ratio [0.7-1.6] 0.8 (04/07/16 10:32 AM) Calcium Lvl 9.9 mg/dL [8.5-10.5 mg/dL] (04/07/16 10:32 AM) ALT [0-65 unit/L] 34 unit/L (04/07/16 10:32 AM) AST [0-37 unit/L] 22 unit/L (04/07/16 10:32 AM) Alk Phos [39-136 69 unit/L unit/L] (04/07/16 10:32 AM) Bili Total [0.2-1.3 0.3 mg/dL mg/dL] (04/07/16 10:32 AM) 1Result Comment: The eGFR is calculated using the [...] from the National Kid[employer] Disease Education Program ( NKDEP) which additionally recommends that when the eGFR is used in patients with extremes of body mass index for purposes of drug dosing, the eGFR should be mul tiplied by the estimated BMI. URINE AND STOOL Most recent to 1 oldest [Reference Range]: UA Turbidity [Clear] Clear (04/07/16 10:42 AM) UA Color [Yellow] Yellow *NA* (04/07/16 10:42 AM) UA pH [5.0-8.0] 6.0 (04/07/16 10:42 AM) UA Spec Grav 1.025 [<=1.030] (04/07/16 10:42 AM) UA Glucose Negative [Negative] (04/07/16 10:42 AM) UA Blood [Negative] Negative (04/07/16 10:42 AM) UA Ketones Negative [Negative] *NA* (04/07/16 10:42 AM) UA Protein Negative [Negative] (04/07/16 10:42 AM) UA Urobilinogen 0.2 EU/dL [0.1-1.0 EU/dL] (04/07/16 10:42 AM) UA Bili [Negative] Negative *NA* (04/07/16 10:42 AM) UA Leuk Est Small [Negative] *ABN* (04/07/16 10:42 AM) UA Nitrite Negative [Negative] (04/07/16 10:42 AM) UA WBC [None Seen 3-5 /HPF /HPF] (04/07/16 10:42 AM) UA RBC [0-2 /HPF] 0-2 /HPF (04/07/16 10:42 AM) UA Bacteria [None Occasional /HPF Seen /HPF] (04/07/16 10:42 AM) UA Sq Epi [Few /LPF] Few /LPF (04/07/16 10:42 AM) HEMATOLOGY Most recent to 1 oldest [Reference Range]: WBC [3.7-10.4 K/CMM] 6.0 K/CMM (04/07/16 10:32 AM) RBC [4.20-5.40 3.98 M/CMM M/CMM] *LOW* (04/07/16 10:32 AM) Hgb [12.0-16.0 g/dL] 13.0 g/dL (04/07/16 10:32 AM) Hct [36.0-48.0 %] 39.8 % (04/07/16 10:32 AM) MCV [80.0-98.0 fL] 100.0 fL *HI* (04/07/16 10:32 AM) MCH [27.0-31.0 pg] 32.6 pg *HI* (04/07/16 10:32 AM) MCHC [32.0-36.0 32.6 g/dL g/dL] (04/07/16 10:32 AM) RDW [11.5-14.5 %] 13.6 % (04/07/16 10:32 AM) Platelet [133-450 261 K/CMM K/CMM] (04/07/16 10:32 AM) MPV [7.4-10.4 fL] 8.3 fL (04/07/16 10:32 AM) Segs [45.0-75.0 %] 39.1 % *LOW* (04/07/16 10:32 AM) Lymphocytes 45.2 % [20.0-40.0 %] *HI* (04/07/16 10:32 AM) Monocytes [2.0-12.0 11.3 % %] (04/07/16 10:32 AM) Eosinophils [0.0-4.0 3.6 % %] (04/07/16 10:32 AM) Basophils [0.0-1.0 0.8 % %] (04/07/16 10:32 AM) Segs-Bands # 2.3 K/CMM [1.5-8.1 K/CMM] (04/07/16 10:32 AM) Lymphocytes # 2.7 K/CMM [1.0-5.5 K/CMM] (04/07/16 10:32 AM) Monocytes # [0.0-0.8 0.7 K/CMM K/CMM] (04/07/16 10:32 AM) Eosinophils # 0.2 K/CMM [0.0-0.5 K/CMM] (04/07/16 10:32 AM) Immunizations No data available for this section Procedures Procedure Date Related Diagnosis Body Site Replacement of left knee joint 2005 Tubal ligation 1984 Social History Social History Type Response Substance Abuse Use: Past. Type: Marijuana.1 Exercise Exercise duration: 0. Alcohol Past, Type Beer. Previous treatment: None. Smoking Status Never smoker; Previous treatment: None; Ready to change: No; Concerns about tobacco use in household: No; Exposure to Tobacco Smoke None; Cigarette Smoking Last 365 Days No; Reg Smoking Cessation Counseling No 1pt says it has been a few years since she last smoked marijuana Assessment and Plan No data available for this section
[2018-09-06 09:00] VITALS: BP 133/86
--- NOTE | 2018-09-06 11:16 | Operative Report ---
DATE OF PROCEDURE: 09/06/2018 SURGEON: Deric Herrera MD PREOPERATIVE DIAGNOSIS: Osteoarthritis of right hip and low back. POSTOPERATIVE DIAGNOSIS: Osteoarthritis of right hip and low back. PROCEDURE: Fluoroscopic-guided corticosteroid injection of right hip. INDICATIONS: The patient is a 62-year-old lady, who has arthritic changes in her low back and her right hip. Her clinic exam and symptoms are not typical for back pain or hip pain by themselves. We have discussed the options. We plan on a fluoroscopic-guided injection. The risks and benefits of the procedure have been explained. She states she understands and wishes to proceed. PROCEDURE IN DETAIL: The patient was brought to the procedure room. She was given a MAC anesthetic. Her right hip was prepped and draped in a sterile manner. A preoperative time-out was performed. A C-arm image intensifier was used to assist in placing an 18-gauge spinal needle in the inferior recess of the right hip joint. A small amount of fluid was aspirated from the joint. A small amount of contrast further confirmed intra-articular positioning. A mixture of 9 mL of 0.5% Marcaine and 40 mg of Kenalog was injected into the hip joint. The needle was retrieved and a Band-Aid was applied. She was transported to the recovery room in stable condition. Deric Herrera MD DR/MATTEO /[id number]
== END | disposition home or self-care (01) ==
LOC: OR 05:00
PROVIDERS: ATTEND Specialist
DX: M16.11 Unilateral primary osteoarthritis, right hip (principal); M47.816 Spondylosis without myelopathy or radiculopathy, lumbar region; M54.2 Cervicalgia; I44.7 Left bundle-branch block, unspecified; R05 Cough; I10 Essential (primary) hypertension; F41.9 Anxiety disorder, unspecified; Z01.810 Encounter for preprocedural cardiovascular examination; Z01.812 Encounter for preprocedural laboratory examination; Z68.30 Body mass index [BMI] 30.0-30.9, adult; Z96.652 Presence of left artificial knee joint; Z87.891 Personal history of nicotine dependence
CPT/HCPCS: 20610; 36415; 77002; 80048; 93005; J2250; J2704; J3301; Q9967; J2001